=== PATIENT | male | born 1970 | race Caucasian/White ===

== ENCOUNTER 2020-11-18 22:30 | Emergency (ER) | payer BC, OTHER ==
[2020-11-18 22:37] VITALS: BMI 25.7
[2020-11-19 01:14] LABS: BASO % 0.9 % (0-2.0); EOS % 1.7 % (0-4.5); HEMATOCRIT 40.6 % (35.4-49); HEMOGLOBIN 13.8 GM/dL (11.7-16.9); LYMPH % 17.7 % (8-40); MCH 29.5 pg (25.7-33.7); MCHC 34.1 g/dl (32.0-35.9); MEAN CELL VOLUME 86.4 fl (80-96); MEAN PLT VOLUME 8.4 fl (7.5-11.1); MONO % 7.8 % (3.8-10.2); NEUT % 71.9 % (42.8-82.8); PLATELET COUNT 198 K/MM3 (134-434); RDW 13.2 % (11.9-15.9); WHITE BLOOD COUNT 6.6 K/mm3 (4.0-10.0)
[2020-11-19 01:33] LABS: CHLORIDE 107 mmol/L (98-107); POTASSIUM 4.7 mmol/L (3.5-5.1); SODIUM 142 mmol/L (136-145)
[2020-11-19 01:35] LABS: CALCIUM 9.3 mg/dL (8.5-10.1)
[2020-11-19 01:36] LABS: ANION GAP 7 MMOL/L (8-16); BLOOD UREA NITROGEN 12.9 mg/dL (7-18); CO2 28 mmol/L (21-32); GLUCOSE,RANDOM 102 mg/dL (74-106)
[2020-11-19 01:39] LABS: CREATININE 1.1 mg/dL (0.55-1.3); SGOT/AST 26 U/L (15-37); SGPT/ALT 45 U/L (13-61)
[2020-11-19 01:40] LABS: TOT PROT 7.9 g/dl (6.4-8.2)
[2020-11-19 01:42] LABS: ALK PHOS 122 U/L (45-117)
[2020-11-19 04:37] VITALS: BP 137/88; PULSE 76; TEMP 98.1
== END 2020-11-19 05:18 | disposition home or self-care (01) ==
LOC: JER 22:30
DX: R41.9 Unspecified symptoms and signs involving cognitive functions and awareness (principal); R07.9 Chest pain, unspecified; K64.9 Unspecified hemorrhoids
CPT/HCPCS: 36415; 71046-TC-FY; 80053; 82550; 82553; 84484; 85025; 87804; 93005; 93010; 99285-25